=== PATIENT | male | born 1995 | race Caucasian/White ===

== ENCOUNTER → 2021-10-28 | Outpatient (CLI) | payer OTHER | LOC: MHCPAIN 10:07 | DX: M25.561 Pain in right knee (principal); M25.562 Pain in left knee; M25.511 Pain in right shoulder; M54.50 Low back pain, unspecified; R20.2 Paresthesia of skin; M25.311 Other instability, right shoulder | CPT/HCPCS: G0463 ==

== ENCOUNTER 2021-10-31 11:10 | Outpatient (RCR) | payer OTHER | END 2021-11-27 | disposition home or self-care (01) | LOC: COL.RAD | DX: M43.8X5 Other specified deforming dorsopathies, thoracolumbar region (principal); Q74.2 Other congenital malformations of lower limb(s), including pelvic girdle; Z98.890 Other specified postprocedural states; Z87.81 Personal history of (healed) traumatic fracture ==

== ENCOUNTER → 2021-11-25 | Outpatient (CLI) | payer OTHER | LOC: MHCPAIN 14:19 | DX: M54.50 Low back pain, unspecified (principal); M25.511 Pain in right shoulder; M25.562 Pain in left knee; M25.561 Pain in right knee; M25.311 Other instability, right shoulder; R20.2 Paresthesia of skin | CPT/HCPCS: G0463 ==